=== PATIENT | male | born 1980 | race African-American/Black ===

== ENCOUNTER 2021-01-30 09:53 | Emergency (ER) | payer SELFPAY ==
[~2021-01-30] VITALS: Ht 182 cm; Wt 90.0 kg
[~2021-01-30 09:53] MED LIST: ACHD5005 PO; CPR500T PO; MPR22T TOP; NAPR-243 PO; SULF1TAB38 PO; TRM50T PO
[2021-01-30] MEDS: ONDANSETRON 4 MG/2 ML (SDV) Z0FRAN IVP ONE (10:10)
[2021-01-30] MEDS: FAMOTIDINE 20MG/2ML IV (PEPCID) IVP ONE (10:11)
[2021-01-30] MEDS: LIDOCAINE 2% VISCOUS 15 ML UDC PO ONE (10:12)
[2021-01-30] MEDS: ANTACID SUSP 30 ML UDC (MYLANTA) PO ONE (10:12)
[2021-01-30 10:14] LABS: BASOPHILS % (AUTO) 1 % (0-10); EOSINOPHILS # (AUTO) 0.2 10^3/uL (0.0-0.3); EOSINOPHILS % (AUTO) 2 % (0-10); HEMATOCRIT 48 % (40-54); HEMOGLOBIN 15.8 g/dL (13.3-17.7); LYMPHOCYTES # (AUTO) 2.4 10^3/uL (1.0-4.0); LYMPHOCYTES % (AUTO) 39 % (12-44); MEAN CORPUSCULAR HEMOGLOBIN 28 pg (25-34); MEAN CORPUSCULAR HGB CONC 33 g/dL (32-36); MEAN CORPUSCULAR VOLUME 84 fL (80-99); MEAN PLATELET VOLUME 8.6 fL (9.0-12.2); MONOCYTES # (AUTO) 0.5 10^3/uL (0.0-1.0); MONOCYTES % (AUTO) 8 % (0-12); NEUTROPHILS % (AUTO) 49 % (42-75); PLATELET COUNT 399 10^3/uL (130-400); WHITE BLOOD COUNT 6.2 10^3/uL (4.3-11.0)
[2021-01-30 10:25] LABS: ALBUMIN 4.4 GM/DL (3.2-4.5)
[2021-01-30 10:26] LABS: CHLORIDE 106 MMOL/L (98-107); POTASSIUM 4.2 MMOL/L (3.6-5.0); SODIUM 140 MMOL/L (135-145)
[2021-01-30 10:27] LABS: CALCIUM 9.7 MG/DL (8.5-10.1)
[2021-01-30 10:28] LABS: GLUCOSE 86 MG/DL (70-105); TOTAL PROTEIN 7.6 GM/DL (6.4-8.2)
[2021-01-30 10:29] LABS: CARBON DIOXIDE 28 MMOL/L (21-32)
[2021-01-30 10:30] LABS: BILIRUBIN,TOTAL 0.9 MG/DL (0.1-1.0)
[2021-01-30 10:31] LABS: ALKALINE PHOSPHATASE 74 U/L (40-136)
[2021-01-30 10:32] LABS: CREATININE SERUM 0.84 MG/DL (0.60-1.30); GFR ESTIMATED > 60
--- NOTE | 2021-01-30 10:32 | Diagnostic Imaging Report ---
Indication: Intermittent chest pain. Time of exam: 10:22 AM No prior studies are available for comparison. The heart size is normal. The pulmonary vascularity is unremarkable. The lungs are clear. No infiltrate, effusion or pneumothorax is detected. Impression: No acute cardiopulmonary process is detected. Dictated by: Dictated on workstation # [id number]
[2021-01-30 10:33] LABS: BUN/CREATININE RATIO 14; LIPASE 23 U/L (8-78)
[2021-01-30 10:35] LABS: ALANINE AMINOTRANSFERASE 31 U/L (0-55)
[2021-01-30 11:48] LABS: INR 1.1 (0.8-1.4); PROTHROMBIN TIME PATIENT 14.3 SEC (12.2-14.7)
--- NOTE | 2021-01-30 12:35 | ED Chest Pain ---
General Chief Complaint: Chest Pain Stated Complaint: CP Nursing Triage Note: ARRIVED VIA AMB WITH COMPLAINTS OF CHEST PAIN X2 DAYS. STATES IT COMES AND GOES AND IS BEHIND HIS LEFT NIPPLE. Nursing Sepsis Screen: No Definite Risk Source: patient Exam Limitations: no limitations History of Present Illness Date Seen by Provider: January 30, 2021 Time Seen by Provider: 10:00 Initial Comments This 40-year-old gentleman presents to the emergency room with complaints of intermittent sharp pain in the left chest. Symptoms started yesterday. Sometimes he experiences worse pain with deep inspiration but it is not necessarily only associated with deep breathing. He did not complain of it he abdominal pain but he is noted to have some tenderness in the epigastrium. He denies any other significant symptoms at this time. Allergies and Home Medications Allergies Coded Allergies: No Known Drug Allergies (Unverified , 06/12/11) Home Medications No Active Prescriptions or Reported Meds Patient Home Medication List Home Medication List Reviewed: Yes Review of Systems Review of Systems Constitutional: no symptoms reported EENTM: No Symptoms Reported Respiratory: See HPI Cardiovascular: See HPI Gastrointestinal: See HPI Genitourinary: No Symptoms Reported Musculoskeletal: no symptoms reported Skin: no symptoms reported Psychiatric/Neurological: No Symptoms Reported Endocrine: No Symptoms Reported Hematologic/Lymphatic: No Symptoms Reported Past Kzvjaan-Ldukiu-Lzebgn Hx Past Med/Social Hx: Reviewed Nursing Past Med/Soc Hx Patient Social History Alcohol Use: Denies Use Smoking Status: Current Someday Smoker Recent Infectious Disease Expo: No Recent Hopitalizations: No Seasonal Allergies Seasonal Allergies: No Past Medical History Surgeries: Yes (appendectomy) Appendectomy Respiratory: No Cardiac: No Neurological: Yes Reproductive Disorders: No Sexually Transmitted Disease: No Genitourinary: No Gastrointestinal: No Musculoskeletal: No Endocrine: No HEENT: No Cancer: No Psychosocial: No Blood Disorders: No Physical Exam Vital Signs Vital Signs - First Documented 01/30/21 01/30/21 09:53 13:29 Temp 36.0 Pulse 66 Resp 16 B/P (MAP) 149/111 (124) Pulse Ox 95 O2 Delivery Room Air Capillary Refill : Less Than 3 Seconds Height, Weight, BMI Height: '" Weight: lbs. oz. kg; 27.00 BMI Method:Stated General Appearance: No Apparent Distress, WD/WN HEENT: PERRL/EOMI, Normal ENT Inspection Neck: Normal Inspection Respiratory: Chest Non Tender, Lungs Clear, Normal Breath Sounds, No Accessory Muscle Use, No Respiratory Distress Cardiovascular: Regular Rate, Rhythm, No Edema, No Murmur Extremity: Normal Inspection, Non Tender, No Calf Tenderness, No Pedal Edema Neurologic/Psychiatric: Alert, Oriented x3, No Motor/Sensory Deficits, Normal Mood/Affect Skin: Normal Color, Warm/Dry Progress/Results/Core Measures Results/Orders Lab Results Laboratory Tests Test 01/30/21 10:06 01/30/21 11:31 01/30/21 12:18 Range/Units White Blood Count 6.2 4.3-11.0 10^3/uL Red Blood Count 5.65 H 4.30-5.52 10^6/uL Hemoglobin 15.8 13.3-17.7 g/dL Hematocrit 48 40-54 % Mean Corpuscular Volume 84 80-99 fL Mean Corpuscular Hemoglobin 28 25-34 pg Mean Corpuscular Hemoglobin Concent 33 32-36 g/dL Red Cell Distribution Width 12.1 10.0-14.5 % Platelet Count 399 130-400 10^3/uL Mean Platelet Volume 8.6 L 9.0-12.2 fL Immature Granulocyte % (Auto) 1 % Neutrophils (%) (Auto) 49 42-75 % Lymphocytes (%) (Auto) 39 12-44 % Monocytes (%) (Auto) 8 0-12 % Eosinophils (%) (Auto) 2 0-10 % Basophils (%) (Auto) 1 0-10 % Neutrophils # (Auto) 3.0 1.8-7.8 10^3/uL Lymphocytes # (Auto) 2.4 1.0-4.0 10^3/uL Monocytes # (Auto) 0.5 0.0-1.0 10^3/uL Eosinophils # (Auto) 0.2 0.0-0.3 10^3/uL Basophils # (Auto) 0.0 0.0-0.1 10^3/uL Immature Granulocyte # (Auto) 0.1 0.0-0.1 10^3/uL Sodium Level 140 135-145 MMOL/L Potassium Level 4.2 3.6-5.0 MMOL/L Chloride Level 106 98-107 MMOL/L Carbon Dioxide Level 28 21-32 MMOL/L Anion Gap 6 5-14 MMOL/L Blood Urea Nitrogen 12 7-18 MG/DL Creatinine 0.84 0.60-1.30 MG/DL Estimat Glomerular Filtration Rate > 60 BUN/Creatinine Ratio 14 Glucose Level 86 70-105 MG/DL Calcium Level 9.7 8.5-10.1 MG/DL Corrected Calcium 9.4 8.5-10.1 MG/DL Magnesium Level 2.0 1.6-2.4 MG/DL Total Bilirubin 0.9 0.1-1.0 MG/DL Aspartate Amino Transf (AST/SGOT) 27 5-34 U/L Alanine Aminotransferase (ALT/SGPT) 31 0-55 U/L Alkaline Phosphatase 74 40-136 U/L Myoglobin 113.9 H 10.0-92.0 NG/ML Troponin I < 0.028 < 0.028 <0.028 NG/ML Total Protein 7.6 6.4-8.2 GM/DL Albumin 4.4 3.2-4.5 GM/DL Lipase 23 8-78 U/L Prothrombin Time 14.3 12.2-14.7 SEC INR Comment 1.1 0.8-1.4 Activated Partial Thromboplast Time 29 24-35 SEC D-Dimer < 0.27 0.00-0.49 UG/ML My Orders Orders - JOSELIN MAYER MD Cbc With Automated Diff (01/30/21 10:02) Magnesium (01/30/21 10:02) Chest 1 View, Ap/Pa Only (01/30/21 10:02) Ekg Tracing (01/30/21 10:02) Comprehensive Metabolic Panel (01/30/21 10:02) Myoglobin Serum (01/30/21 10:02) Protime With Inr (01/30/21 10:02) Partial Thromboplastin Time (01/30/21 10:02) O2 (01/30/21 10:02) Monitor-Rhythm Ecg Trace Only (01/30/21 10:02) Ed Iv/Invasive Line Start (01/30/21 10:02) Troponin I (01/30/21 10:02) Lipase (01/30/21 10:02) Famotidine Injection (Pepcid Injection) (01/30/21 10:15) Ondansetron Injection (Zofran Injectio (01/30/21 10:15) Lidocaine 2% Viscous 15 Ml (Xylocaine Vi (01/30/21 10:15) Antacid Suspension (Mylanta Suspension (01/30/21 10:15) Fibrin Degradation Products (01/30/21 11:08) Troponin I (01/30/21 12:10) Medications Given in ED Current Medications Medications Dose Ordered Sig/Jacklyn Route Start Time Stop Time Status Last Admin Dose Admin Al Hydrox/Mg Hydrox/Simethicone 30 ml ONCE ONCE PO 01/30/21 10:15 01/30/21 10:16 DC 01/30/21 10:12 30 ML Famotidine 20 mg ONCE ONCE IVP 01/30/21 10:15 01/30/21 10:16 DC 01/30/21 10:11 20 MG Lidocaine HCl 15 ml ONCE ONCE PO 01/30/21 10:15 01/30/21 10:16 DC 01/30/21 10:12 15 ML Ondansetron HCl 4 mg ONCE ONCE IVP 01/30/21 10:15 01/30/21 10:16 DC 01/30/21 10:10 4 MG Vital Signs/I&O 01/30/21 01/30/21 09:53 13:29 Temp 36.0 Pulse 66 59 Resp 16 16 B/P (MAP) 149/111 (124) 163/126 Pulse Ox 95 97 O2 Delivery Room Air Blood Pressure Mean: 124 Progress Progress Note : Progress Note Patient was seen and examined. He was given a GI cocktail, Pepcid, and Zofran. The chest pain seemed to improve but he still had some pain with inspiration and some epigastric pain. A 2-hour troponin is being obtained for cardiac rule out. Work-up was otherwise unremarkable. Initial ECG Impression Date: January 30, 2021 Initial ECG Impression Time: 09:55 Initial ECG Rate: 67 Initial ECG Rhythm: Normal Sinus Comment Sinus rhythm with no ST elevation or depression. First-degree AV block with DC interval of 264 ms. No axis deviation. Diagnostic Imaging Diagonstic Imaging: Xray Plain Films/CT/US/NM/MRI: chest Comments Chest x-ray viewed by me and report reviewed. See report below: NAME: BARBI GRIFFIN [facility] REC#: [id number] PT STATUS: REG ER : 1980 PHYSICIAN: JOSELIN MAYER MD ADMIT DATE: 01/30/21/ER Draft Date of Exam:01/30/21 CHEST 1 VIEW, AP/PA ONLY Indication: Intermittent chest pain. Time of exam: 10:22 AM No prior studies are available for comparison. The heart size is normal. The pulmonary vascularity is unremarkable. The lungs are clear. No infiltrate, effusion or pneumothorax is detected. Impression: No acute cardiopulmonary process is detected. Dictated on workstation # [id number] Dict: 01/30/21 1031 Trans: 01/30/21 1032 [facility] [id number] Interpreted by: CLARITZA HILARIO MD Departure Impression Primary Impression: Atypical chest pain Additional Impression: Epigastric pain Disposition: HOME, SELF-CARE Condition: Improved Departure-Patient Inst. Decision time for Depature: 13:21 Referrals: NO,LOCAL PHYSICIAN (PCP/Family) Primary Care Physician Patient Instructions: Chest Pain That Is Not Caused by the Heart (DC) Add. Discharge Instructions: Follow-up with your primary care provider soon as possible for further evaluation. You may use Tylenol (acetaminophen) up to 1000 mg every 6 hours as needed for pain. In the short-term avoid the following: Eating large meals, eating close to bedtime, caffeine, carbonation, chocolate, citrus fruits and juices, tomato products, mints, spicy foods, fatty or greasy foods, NSAID medications such as ibuprofen or naproxen, or anything else you know irritate your stomach. Use an antacid medication such as omeprazole 20 mg or Pepcid (famotidine) 20 mg twice daily for the next month. This will hopefully gradually improve your upper abdominal and chest discomfort. Call with questions or concerns. Return to the ER if you have worsening symptoms. All discharge instructions reviewed with patient and/or family. Voiced understanding. Scripts No Active Prescriptions or Reported Meds JOSELIN MAYER MD January 30, 2021 12:35
[2021-01-30 13:29] VITALS: BP 163/126
== END 2021-01-30 13:29 | disposition home or self-care (01) ==
LOC: EDUNIT# 09:53 → ER 09:55
DX: R07.89 Other chest pain (principal); R10.13 Epigastric pain; F17.200 Nicotine dependence, unspecified, uncomplicated
CPT/HCPCS: 36415; 71045; 80053; 83690; 83735; 83874; 84484; 85025; 85379; 85610; 85730; 93005; 93041